=== PATIENT | female | born 1945 | race Caucasian/White ===

== ENCOUNTER → 2017-12-27 | Outpatient (CLI) | payer MEDICARE ==
[2017-03-20 11:52] VITALS: BMI 32.1
[~2017-12-27] MED LIST: ALB17R IH; ALBU8.5H IH; ASPI-1471 PO; AZIT-17 PO; CIP500 PO; CIPR-212 PO; CIPR-214 PO; CIPR-344 PO; CIPR500S3 PO; CIPRO PO; DEXL60CA6 PO; DIPH-1 PO; DULO30CA35 PO; DULO60CA56 PO; ENABLEX PO; ESCI20TA38 PO; ESTRADIOL; FAM20 PO; FAMO20TA28 PO; FENT-90 TD; FLU20 PO; FLUC100T35 PO; FLUO-202 PO; FLUT1DIS28 IH; HCTZ25 PO; HYDR-2966 PO; HYDR12.561 PO; HYDR1POW PO; HYDR2TAB74 PO; IBU600 PO; IBUP600T22 PO; LANS15CA38 PO; LOR1 PO; LOR5/325 PO; LORA-630 PO; LORA-639 PO; MAGN400C PO; MEPE50TA30 PO; METH4TAB66 PO; METR-160 PO; MOMR NS; NORE-5 PO; NYST15CR32 TP; ONDA4TAB9 PO; OXYC-869 PO; PANT40TA65 PO; PHEN200T32 PO; PHENA200 PO; PRE20 PO; PROGESTERONE; PROM-110 PO; RANI-318 PO; SUCR1TAB85 PO; TRAZ-133 PO; TRAZ-156 PO; TRAZ-163 PO; TRAZ50 PO; URI PO; ZOL5 PO; ZOLP-350 PO
--- NOTE | 2017-12-27 16:49 | RADIOLOGY IMAGING REPORT ---
FACILITY: [facility] PATIENT NAME: ELENA GRADY : [id number] MR: [id number] V: [id number] EXAM DATE: [id number] ORDERING PHYSICIAN: SAE MIRAMONTES TECHNOLOGIST: Usha Raya PROCEDURE:BILATERAL DIGITAL SCREENING MAMMOGRAM WITH CAD ASSISTED INTERPRETATION & 3D TOMOSYNTHESIS COMPARISON:Prior mammograms 03/25/11. INDICATIONS:SCREENING FINDINGS: Moderately dense fibroglandular tissue is seen throughout the breasts. The parenchymal pattern has remained stable allowing for difference in mammographic technique & patient positioning. There is no evidence of malignant appearing mass, malignant appearing calcifications or other secondary sign of malignancy in either breast. DIAGNOSTIC CATEGORY 1--NEGATIVE. RECOMMENDATIONS: ROUTINE MAMMOGRAM AND CLINICAL EVALUATION. IMPRESSION: BIRADS 1: Negative No significant abnormality is seen. Dictated by: Adriana Menard M.D. on 12/27/2017 at 13:55 Transcribed by: SOFIE on 12/27/2017 at 14:02 Approved by: Adriana Menard M.D. on 12/27/2017 at 16:49 [facility]
== END ==
LOC: MAMO 00:55
PROVIDERS: ATTEND Internal Medicine
DX: Z12.31 Encounter for screening mammogram for malignant neoplasm of breast (principal)
CPT/HCPCS: 77063; 77067

== ENCOUNTER → 2018-01-25 | Outpatient (CLI) | payer MEDICARE ==
[2017-03-20 11:52] VITALS: BMI 32.1
[~2018-01-25] MED LIST changes: +ASPI-757 PO; +DIPH-740 PO; +IBUP800T37 PO; +LORA0.5P MC; +SOLI10TA8 PO
[2018-01-25 16:18] LABS: PLATELET COUNT, AUTOMATED 229 K/uL (150-450)
== END ==
LOC: LAB 15:50
PROVIDERS: ATTEND Internal Medicine
DX: R53.83 Other fatigue (principal); E78.5 Hyperlipidemia, unspecified; I10 Essential (primary) hypertension; E66.9 Obesity, unspecified
CPT/HCPCS: 36415; 81001; 82040; 82247; 82310; 82374; 82435; 82565; 82947; 84075; 84132; 84155; 84295; 84443; 84450; 84460; 84520; 84550; 85025

== ENCOUNTER 2018-03-24 17:38 | Emergency (ER) | payer MEDICARE ==
[2017-03-20 11:52] VITALS: Wt 82.2 kg
[~2018-03-24 17:38] MED LIST changes: +MIRT-27 PO
[2018-03-24 18:40] VITALS: BP 144/92
[2018-03-24 19:10] LABS: PLATELET COUNT, AUTOMATED 296 K/uL (150-450)
--- NOTE | 2018-03-24 20:15 | ER Report ---
History and Physical Time Seen By MD: 20:15 Hx. of Stated Complaint: SUAD REPORTS HX OF ANXIETY AND DEPRESSION, NORMALLY TAKES LORAZEPAM BUT PROVIDER MOVED PRACTICE ABOUT 4 WEEKS AGO AND SHE HAS NOT HAD ANY LORAZEPAM SINCE. ALSO TAKES CYMBALTA HPI/ROS CHIEF COMPLAINT: Anxiety HISTORY OF PRESENT ILLNESS: Patient is a 72-year-old female here with complaints of anxiety and significant life stressors. She reports having history of depression and anxiety and had been treated with Cymbalta and lorazepam however currently does not have a prescription for lorazepam. Patient denies suicidal or homicidal ideation or plan. She is well-appearing at time of evaluation and in no acute distress. Denies headache, blurred vision, chest pain , shortness breath, abdominal pain, nausea, vomiting. REVIEW OF SYSTEMS: Constitutional: No fever, no chills. Eyes: No discharge. ENT: No sore throat. Cardiovascular: No chest pain, no palpitations. Respiratory: No cough, no shortness of breath. Gastrointestinal: No abdominal pain, no vomiting. Genitourinary: No hematuria. Musculoskeletal: No back pain. Skin: No rashes. Neurological: No headache. Psych: + anxious and depressed Allergies: Coded Allergies: Sulfa (Sulfonamide Antibiotics) (Verified Allergy, Severe, SHORTNESS OF BREATH, 03/20/16) nitrofurantoin (Verified Allergy, Severe, SHORTNESS OF BREATH, 03/20/16) codeine (Verified Allergy, Intermediate, ITCHING, 03/20/16) sertraline (Verified Allergy, Intermediate, RASH, 03/20/16) erythromycin base (Verified Allergy, Mild, NAUSEA/VOMITING, 03/20/16) succinylcholine (Verified Adverse Reaction, Severe, JOINT PAIN, 03/20/16) Home Meds Active Scripts Lorazepam (LORAZEPAM) 1 Mg Tab, 1 TAB PO Q8H for Anxiety, #10 TAB Prov:ADRIANNA DAMON DO 03/24/18 Mirtazapine (MIRTAZAPINE) 15 Mg Tab.rapdis, 15 MG PO QHS Y for insomnia, #30 TAB 1 Refill Prov:SAE MIRAMONTES MD 03/14/18 Hydrochlorothiazide (HYDROCHLOROTHIAZIDE) 12.5 Mg Tablet, 1 TAB PO QDAY, #90 TAB 4 Refills Prov:SAE MIRAMONTES MD 01/30/18 Pantoprazole Sodium (PANTOPRAZOLE SODIUM) 40 Mg Tablet.dr, 1 TAB PO QDAY, #30 TAB.SR 6 Refills Prov:SAE MIRAMONTES MD 08/23/17 Reported Medications Aspirin (ASPIRIN) 325 Mg Tablet, 325 MG PO Q4-6H Y for PAIN, TAB 01/25/18 Ibuprofen (IBUPROFEN) 800 Mg Tablet, 1 TAB PO QDAY Y for PAIN, TAB 01/25/18 Solifenacin Succinate (VESICARE) 10 Mg Tablet, 10 MG PO QDAY Y for incontinence 01/25/18 Diphenhydramine Hcl (BENADRYL) 25 Mg Capsule, 1 CAP PO Q6-8H, CAPSULE 01/24/18 Trazodone Hcl (TRAZODONE HCL) 100 Mg Tablet, 0.5 TAB PO QHS Y for anxiety, TAB 02/28/17 Duloxetine Hcl (CYMBALTA) 60 Mg Capsule.dr, 1 CAP PO QDAY, #5 CAP 03/20/16 Past Medical/Surgical History Depression, anxiety Reviewed Nurses Notes: Yes Hx Smoking: No Smoking Status: Never Smoker Hx Substance Use Disorder: No Hx Alcohol Use: No Constitutional Vital Sign - Last 24 Hours 03/24/18 18:40 Temp 98.0 Pulse 107 Resp 18 B/P (MAP) 144/92 Pulse Ox 92 Physical Exam General Appearance: [The patient is alert, has no immediate need for airway protection and no signs of toxicity.] [ ] [Eyes:] [Pupils equal and round no pallor or injection.] [ENT, Mouth:] [Mucous membranes are moist.] Respiratory: [There are no retractions, lungs are clear to auscultation.] Cardiovascular: [Regular rate and rhythm.] [ ] Gastrointestinal: [Abdomen is soft and non tender, no masses, bowel sounds normal.] [Neurological:] [ ] [Skin:] [Warm and dry, no rashes.] [Musculoskeletal:] [Neck is supple non tender.] [Extremities are nontender, nonswollen and have full range of motion.] [ ] [DIFFERENTIAL DIAGNOSIS: After history and physical exam differential diagnosis was considered for] [ ] Medical Decision Making Data Points Result Diagram: 03/24/18190203/24/181902 Laboratory Hematology Test 03/24/18 00:00 03/24/18 19:03 Thyroid Stimulating Hormone (TSH) 2.65 uIU/ml (0.46-4.68) Red Blood Count 5.74 M/uL (4.17-5.56) Mean Corpuscular Volume 85.3 fL (80.0-96.0) Mean Corpuscular Hemoglobin 28.9 pg (26.0-33.0) Mean Corpuscular Hemoglobin Concent 33.9 g/dL (32.0-36.0) Red Cell Distribution Width 13.5 % (11.5-14.5) Mean Platelet Volume 7.5 fL (7.2-11.1) Neutrophils (%) (Auto) 72.4 % (39.4-72.5) Lymphocytes (%) (Auto) 15.4 % (17.6-49.6) Monocytes (%) (Auto) 7.3 % (4.1-12.4) Eosinophils (%) (Auto) 3.7 % (0.4-6.7) Basophils (%) (Auto) 1.2 % (0.3-1.4) Nucleated RBC Relative Count (auto) 0.0 /100WBC Neutrophils # (Auto) 9.5 K/uL (2.0-7.4) Lymphocytes # (Auto) 2.0 K/uL (1.3-3.6) Monocytes # (Auto) 1.0 K/uL (0.3-1.0) Eosinophils # (Auto) 0.5 K/uL (0.0-0.5) Basophils # (Auto) 0.2 K/uL (0.0-0.1) Nucleated RBC Absolute Count (auto) 0.00 K/uL Sodium Level 138 mmol/L (137-145) Potassium Level 3.6 mmol/L (3.5-5.0) Chloride Level 98 mmol/L (98-107) Carbon Dioxide Level 29 mmol/L (22-31) Blood Urea Nitrogen 18 mg/dl (7-18) Creatinine 1.00 mg/dl (0.52-1.04) Glomerular Filtration Rate Calc 54.2 Random Glucose 129 mg/dl (75-110) Calcium Level 9.0 mg/dl (8.4-10.2) Magnesium Level 2.0 mg/dl (1.7-2.2) Total Bilirubin 0.5 mg/dl (0.2-1.3) Aspartate Amino Transf (AST/SGOT) 23 U/L (0-35) Alanine Aminotransferase (ALT/SGPT) 22 U/L (0-56) Alkaline Phosphatase 110 U/L (0-126) Total Protein 7.6 g/dl (6.3-8.2) Albumin 4.2 g/dl (3.5-5.0) Salicylates Level < 10 mg/L Salicylate Last Dose Date unknwon Acetaminophen Level < 10 ug/ml Serum Alcohol < 10 mg/dl Chemistry Test 03/24/18 00:00 03/24/18 19:03 Thyroid Stimulating Hormone (TSH) 2.65 uIU/ml (0.46-4.68) White Blood Count 13.1 k/uL (4.5-11.0) Red Blood Count 5.74 M/uL (4.17-5.56) Hemoglobin 16.6 g/dL (12.0-16.0) Hematocrit 48.9 % (34.0-47.0) Mean Corpuscular Volume 85.3 fL (80.0-96.0) Mean Corpuscular Hemoglobin 28.9 pg (26.0-33.0) Mean Corpuscular Hemoglobin Concent 33.9 g/dL (32.0-36.0) Red Cell Distribution Width 13.5 % (11.5-14.5) Platelet Count 296 K/uL (150-450) Mean Platelet Volume 7.5 fL (7.2-11.1) Neutrophils (%) (Auto) 72.4 % (39.4-72.5) Lymphocytes (%) (Auto) 15.4 % (17.6-49.6) Monocytes (%) (Auto) 7.3 % (4.1-12.4) Eosinophils (%) (Auto) 3.7 % (0.4-6.7) Basophils (%) (Auto) 1.2 % (0.3-1.4) Nucleated RBC Relative Count (auto) 0.0 /100WBC Neutrophils # (Auto) 9.5 K/uL (2.0-7.4) Lymphocytes # (Auto) 2.0 K/uL (1.3-3.6) Monocytes # (Auto) 1.0 K/uL (0.3-1.0) Eosinophils # (Auto) 0.5 K/uL (0.0-0.5) Basophils # (Auto) 0.2 K/uL (0.0-0.1) Nucleated RBC Absolute Count (auto) 0.00 K/uL Glomerular Filtration Rate Calc 54.2 Calcium Level 9.0 mg/dl (8.4-10.2) Magnesium Level 2.0 mg/dl (1.7-2.2) Total Bilirubin 0.5 mg/dl (0.2-1.3) Aspartate Amino Transf (AST/SGOT) 23 U/L (0-35) Alanine Aminotransferase (ALT/SGPT) 22 U/L (0-56) Alkaline Phosphatase 110 U/L (0-126) Total Protein 7.6 g/dl (6.3-8.2) Albumin 4.2 g/dl (3.5-5.0) Salicylates Level < 10 mg/L Salicylate Last Dose Date unknwon Acetaminophen Level < 10 ug/ml Serum Alcohol < 10 mg/dl Toxicology Test 03/24/18 19:03 Salicylates Level < 10 mg/L Salicylate Last Dose Date unknwon Acetaminophen Level < 10 ug/ml Serum Alcohol < 10 mg/dl ED Course/Re-evaluation ED Course Patient is a 72-year-old female here with complaints of depression and anxiety exacerbation. Patient has been treated in the outpatient setting for these conditions with Cymbalta and lorazepam however she is having difficulty getting access to lorazepam. Patient denies suicidal or homicidal ideations. Patient was evaluated by behavioral health diamond powder technician and was offered outpatient opportunities for treatment since she was not interested in coming up to the behavioral health floor. I provided the patient with a prescription for lorazepam temporarily until she is able to regain access to a psychiatrist or therapist. Patient was stable at time of discharge and in no acute distress. Decision to Disposition Date: Mar 24, 2018 Decision to Disposition Time: 20:27 Depart Departure Latest Vital Signs Vital Signs Date Time Temp Pulse Resp B/P (MAP) Pulse Ox O2 Delivery O2 Flow Rate FiO2 03/24/18 18:40 98.0 107 18 144/92 92 Impression: Primary Impression: Anxiety Additional Impression: Depression Condition: Improved Disposition: HOME OR SELF-CARE Referrals: SAE MIRAMONTES MD (PCP) New Scripts Lorazepam (LORAZEPAM) 1 Mg Tab 1 TAB PO Q8H for Anxiety, #10 TAB Prov: ADRIANNA DAMON DO 03/24/18 Patient Instructions: Anxiety (ED), Depression (ED), Lorazepam (By mouth) Additional Instructions: You may take 1 tablet of lorazepam as needed for anxiety. Please follow up with psychiatry in the outpatient setting. Please return promptly if you have worsening symptoms of depression, anxiety, suicidal thoughts or actions. Problem Qualifiers ADRIANNA DAMON DO Mar 24, 2018 20:15
[2018-03-24] MEDS ORDERED: LOR1 PO (20:17)
== END 2018-03-24 20:27 | disposition home or self-care (01) ==
LOC: ER 18:42
DX: F41.9 Anxiety disorder, unspecified (principal); F32.9 Major depressive disorder, single episode, unspecified
CPT/HCPCS: 36415; 83735; 84443; 85025; 99283; G0480; 80320; 80329; 82040; 82247; 82310; 82374; 82435; 82565; 82947; 84075; 84132; 84155; 84295; 84450; 84460; 84520

== ENCOUNTER → 2018-06-16 | Outpatient (CLI) | payer MEDICARE ==
[2017-03-20 11:52] VITALS: BMI 32.1
[~2018-06-16] MED LIST changes: -MEPE50TA30 PO; +MEPE50TA41 PO; -TRAZ-156 PO; -TRAZ-163 PO; +TRAZ100T31 PO; +TRAZ50TA34 PO
--- NOTE | 2018-06-16 14:34 | RADIOLOGY IMAGING REPORT ---
FACILITY: [facility] PATIENT NAME: Rosalina Torres : 1945 MR: [id number] V: [id number] EXAM DATE: ORDERING PHYSICIAN: AZALEA HWANG TECHNOLOGIST: Location: Patient: Rosalina Torres : 1945 Visit/Account:[id number] Date of Sevice: 06/16/2018 Exam type: CHEST PA AND LAT History: Acute bronchitis with cough x1 month, shortness of breath, occasional fevers Comparison: October 25, 2013. Findings: The lungs are free of acute effusions, infiltrates or edema. There is mild hyperexpansion of the ina g ponce. There is no evidence of a pneumothorax. The trachea is in midline. The cardiac silhouett e is normal in size. Other postsurgical changes of the thoracolumbar spine from posterior fusion IMPRESSION: 1. Mild hyperexpansion lung ponce although no evidence of acute pulmonary consolidation Report Dictated By: Adriana Menard MD at 06/16/2018 2:29 PM Report E-Signed By: Adriana Menard MD at 06/16/2018 2:31 PM WSN:[email or web address]
== END ==
LOC: RAD 11:22
PROVIDERS: ATTEND Physician Assistant Medical
DX: J20.9 Acute bronchitis, unspecified (principal)
CPT/HCPCS: 71046

== ENCOUNTER → 2018-07-01 | Outpatient (REF) | payer MEDICARE ==
[2017-03-20 11:52] VITALS: BMI 32.1
== END ==
LOC: ZZSTITCHES 17:17
PROVIDERS: ATTEND Physician Assistant
DX: R30.0 Dysuria (principal)
CPT/HCPCS: 87088

== ENCOUNTER 2018-07-10 00:50 | Day surgery (SDC) | payer MEDICARE ==
[2017-03-20 11:52] VITALS: Ht 160 cm; Wt 81.2 kg
[~2018-07-10] VITALS: Ht 160 cm; Wt 81.2 kg
[2018-07-10] MEDS: FAMOTIDINE 20 MG TAB PO ONE ×2 (10:04→11:10)
[2018-07-10 10:36] LABS: PLATELET COUNT, AUTOMATED 280 K/uL (150-450)
[2018-07-10 11:00] VITALS: BP 123/74
[2018-07-10] MEDS ORDERED: GENTAMICIN(*) 80 MG/2 ML VIAL 160 MG in NS(*) 0.9% 100 ML BAG 100 ML IVPB ONE (11:10)
[2018-07-10] MEDS ORDERED: LIDOCAINE/SOD BICARB 8.4% SYR ID ONE (11:10)
[2018-07-10] MEDS ORDERED: cefTRIAXone(*) 1 GM VIAL 1 GM in NS(*) 0.9% 100 ML ADDVANT BAG 100 ML IVPB ONE (11:10)
[2018-07-10] MEDS ORDERED: NORMOSOL R SOLN(*) 1000 ML BAG 1,000 ML IV PRN (11:10)
[2018-07-10] MEDS ORDERED: MIDAZOLAM 2 MG/2 ML VIAL IVP PRN (11:10)
--- NOTE | 2018-07-10 11:13 | EKG ---
FACILITY: [facility] PATIENT NAME: ELENA GRADY : [id number] MR: [id number] V: [id number] EXAM DATE: ORDERING PHYSICIAN: NATHANIEL JOY TECHNOLOGIST: FLOYD Test Reason : PRE OP Blood Pressure : / mmHG Vent. Rate : 071 BPM Atrial Rate : 071 BPM P-R Int : 152 ms QRS Dur : 074 ms QT Int : 400 ms P-R-T Axes : 069 055 073 degrees QTc Int : 434 ms Normal sinus rhythm Normal ECG When compared with ECG of 31-JUL-2015 06:21, No significant change was found Confirmed by LISBETH DURHAM ([id number]) on 07/10/2018 7:41:28 PM Referred By: RUFINO Confirmed By:LISBETH DURHAM
[2018-07-10] MEDS ORDERED: LIDOCAINE MPF 1% 5 ML VIAL ONE (11:35)
[2018-07-10] MEDS ORDERED: PROPOFOL EMUL(*) 10MG/ML 20 ML 20 ML ONE (11:35)
[2018-07-10] MEDS ORDERED: ONDANSETRON 4 MG/2 ML VIAL ONE (11:35)
[2018-07-10] MEDS ORDERED: DEXAMETHASONE SOD 4 MG/ML VIAL ONE (11:53)
[2018-07-10] MEDS ORDERED: fentaNYL CITR 100 MCG/2 ML AMP ONE ×2 (11:55→15:15)
[2018-07-10] MEDS ORDERED: KETOROLAC 30 MG/ML VIAL ONE (14:34)
[2018-07-10] MEDS ORDERED: HYDROCORTISONE 1% CR 28.35 GM TP ONE (15:09)
[2018-07-10] MEDS ORDERED: LOR5/325 PO (15:32)
[2018-07-10] MEDS ORDERED: PHEN200T32 PO (15:34)
[2018-07-10] MEDS ORDERED: FAMO20TA28 PO (15:35)
[2018-07-10] MEDS ORDERED: CIPR-344 PO (15:36)
[2018-07-10] MEDS ORDERED: APAP/HYDROCODONE 325/5 TAB ONE (15:57)
[2018-07-10 16:00] VITALS: BP 114/56
[2018-07-10 16:15] VITALS: BP 129/80
[2018-07-10 16:31] VITALS: BP 127/89
[2018-07-10 16:32] VITALS: BP 116/88
--- NOTE | 2018-07-11 02:27 | FLOCK CYSTOURETHROSCOPY ---
EVENT DATE: July 10, 2018 SURGEON: Jb Cosme MD ANESTHESIOLOGIST: Joshua Ulloa MD ANESTHESIA: General. PREOPERATIVE DIAGNOSES 1. Recurrent urinary tract infections, etiology ? 2. Possible irritable bladder syndrome. 3. Chronic urgency and frequency of urination. 4. Chronic tenesmus. POSTOPERATIVE DIAGNOSES 1. Recurrent urinary tract infections, etiology ? 2. Possible irritable bladder syndrome. 3. Chronic urgency and frequency of urination. 4. Chronic tenesmus. 5. Multiple inflammatory lesions of bladder x4. PROCEDURES PERFORMED 1. Cystourethroscopy. 2. Biopsy of inflammatory lesions of the base of bladder, just proximal to the trigone, localized more to the mid and left lateral aspect of the base of the bladder. 3. Vaporization and fulguration of the multiple inflammatory lesions of the bladder. DESCRIPTION OF PROCEDURE Under general anesthetic, the patient was prepped and draped in the extended lithotomy position. The 23-panendoscope was admitted through the urethra and into the bladder. The inflammatory lesions were biopsied x3. All the inflammatory lesions of the bladder were vaporized in their entirety. The bladder was filled under gravity flow as measured to a total of approximately 500 mL. On drainage of the bladder, there was no bloody drainage. On reinspection of the bladder, there were no glomerulations except for a few localized to the dome of the bladder. The bladder was refilled under gravity flow and distended. Drainage of the bladder revealed approximately 630 mL. On drainage of the bladder, there was no bloody drainage. On reinspection of the bladder, there were no glomerulations except for those localized on the dome of the bladder. The previous biopsy sites appeared to be intact, and bleeding appeared to be satisfactorily controlled. There were no urethral polyps. Urethra was dilated to 34 Bel[place]ian. Hydrocortisone cream was placed per urethra. A Shelley was left indwelling to be removed in the recovery room. The patient tolerated the procedure satisfactorily and returned to the recovery room in satisfactory condition. This is a 70-year-old white female complaining of history of recurrent urinary tract infections and possible irritable bladder syndrome. Patient complains of chronic urgency and frequency of urination and tenesmus relieved with VESIcare somewhat. Recently, the patient had more severe urgency and frequency of urination and tenesmus, especially in the last three to four weeks, with no relief from Keflex, Macrodantin, and VESIcare therapy. Patient has nocturia x2-3. Flow is initially good, and then she has to strain to finish urination. She has frequency of urination approximately every hour. She has leakage of urine with both stress and urgency, urinary incontinence. Patient has chronic urgency and frequency of urination. The patient will be ready for discharge home when alert and functional. She is to force fluids 2 liters per day. Activities are as tolerated. She is to continue her usual medications. A copy of instructions was given to the patient. We plan followup for 25 July 2018. She is to call for an appointment. She was given a dose of Toradol in the cysto room. She will be discharged home on Cipro, Royal, Pyridium, and Pepcid therapy, in addition to her usual medications. NANCYD
== END 2018-07-10 16:00 | disposition home or self-care (01) ==
LOC: OR 00:50
DX: N39.0 Urinary tract infection, site not specified (principal); R35.0 Frequency of micturition; R39.15 Urgency of urination; R19.8 Other specified symptoms and signs involving the digestive system and abdomen; N32.9 Bladder disorder, unspecified; Z88.2 Allergy status to sulfonamides; Z90.49 Acquired absence of other specified parts of digestive tract; I10 Essential (primary) hypertension; J45.909 Unspecified asthma, uncomplicated; F32.9 Major depressive disorder, single episode, unspecified
CPT/HCPCS: 36415; 52214; 81001; 85025; 87088; 88305; 93005; A4338; A9270; C1758; J0696; J1100; J1580; J1885; J2001; J2250; J2405; J2704; J3010; J7050; 82310; 82374; 82435; 82565; 82947; 84132; 84295; 84520

== ENCOUNTER 2019-01-27 18:11 | Emergency (ER) | payer MEDICARE ==
[2017-03-20 11:52] VITALS: Wt 79.4 kg
[~2019-01-27 18:11] MED LIST changes: -METR-160 PO; +METR500T15 PO; -MIRT-27 PO; +MIRT15TA11 PO
[2019-01-27] MEDS ORDERED: NS(*) 0.9% 1000 ML BAG 1,000 ML IV ONE (18:40)
--- NOTE | 2019-01-27 18:48 | ER Report ---
History and Physical Time Seen By MD: 18:48 HPI/ROS CHIEF COMPLAINT: Dysuria, urinary urgency, fatigue HISTORY OF PRESENT ILLNESS: 73-year-old female patient presents to emergency room with complaint of dysuria, urinary urgency, fatigue. Patient states that she has had dysuria for the past 3 weeks. She states that it started prior to going to [place]. She states that she was started on Cipro. She states that did cause some reaction. She states that she stopped in [place] at a family clinic. She states she was changed to a different antibiotic, however she is not sure what the name of the antibiotic was. She thinks that it started with a C. Patient states that she finished that antibiotic. She states she has had persistent urinary urgency and discomfort. She states that she is most concerned that she is just fatigued and has persisted to be fatigued since she's returned from [place]. She denies having any fevers, or states she has had chills. She denies any nausea, vomiting or diarrhea. Patient denies having any abdominal pain. REVIEW OF SYSTEMS: Respiratory: No cough, no dyspnea. Cardiovascular: No chest pain, no palpitations. Gastrointestinal: No vomiting, no abdominal pain. Musculoskeletal: No back pain. Allergies: Coded Allergies: Sulfa (Sulfonamide Antibiotics) (Verified Allergy, Severe, SHORTNESS OF BREATH, 01/27/19) nitrofurantoin (Verified Allergy, Severe, SHORTNESS OF BREATH, 01/27/19) codeine (Verified Allergy, Intermediate, ITCHING, 01/27/19) sertraline (Verified Allergy, Intermediate, RASH, 01/27/19) erythromycin base (Verified Allergy, Mild, NAUSEA/VOMITING, 01/27/19) succinylcholine (Verified Adverse Reaction, Severe, JOINT PAIN, 01/27/19) Home Meds Active Scripts Hydrochlorothiazide (HYDROCHLOROTHIAZIDE) 12.5 Mg Tablet, 1 TAB PO QDAY, #90 TAB 4 Refills Prov:SAE MIRAMONTES MD 01/30/18 Pantoprazole Sodium (PANTOPRAZOLE SODIUM) 40 Mg Tablet., 1 TAB PO QDAY, #30 TAB.SR 6 Refills Prov:SAE MIRAMONTES MD 08/23/17 Reported Medications Duloxetine Hcl (CYMBALTA) 60 Mg Capsule., 90 MG PO QDAY, #5 CAP 10/19/18 Solifenacin Succinate (VESICARE) 10 Mg Tablet, 10 MG PO QDAY PRN for incontinence 01/25/18 Trazodone Hcl (TRAZODONE HCL) 100 Mg Tablet, 0.5 TAB PO QHS PRN for anxiety, TAB 02/28/17 Discontinued Reported Medications Ciprofloxacin Hcl 500 Mg Tab (CIPRO 500 MG TAB) 500 Mg Tablet, 500 MG PO BID, #20 TAB 07/10/18 Phenazopyridine Hcl (PHENAZOPYRIDINE HCL) 200 Mg Tablet, 200 MG PO TID PRN for BURNING, #20 TAB 07/10/18 Hydrocodone Bit/Acetaminophen (HYDROCODON-ACETAMINOPHEN 5-325) 1 Each Tablet, 1 EACH PO Q4-6H PRN for PAIN, #30 TAB 07/10/18 Past Medical/Surgical History Patient has a past medical history of hypertension, asthma, pneumonia, reflux, cholecystitis, hiatal hernia, frequent UTI, fracture of the right foot, elbow, right Achilles tendinitis, arthritis, back pain, depression. Patient has a surgical history of appendectomy, cholecystectomy, colonoscopy, cystoscopy, right oophorectomy, elbow surgery, right knee surgery, back fusion, tonsillectomy, breast biopsy, cystoscopy. Reviewed Nurses Notes: Yes Hx Smoking: No Smoking Status: Never Smoker Hx Substance Use Disorder: No Hx Alcohol Use: No Constitutional Vital Sign - Last 24 Hours 01/27/19 01/27/19 01/27/19 01/27/19 18:46 18:50 19:00 19:11 Temp 97.6 Pulse 80 72 Resp 18 B/P (MAP) 141/71 (94) 141/71 131/64 (86) Pulse Ox 94 91 O2 Delivery Room Air 01/27/19 01/27/19 01/27/19 19:30 19:32 19:41 Pulse 66 B/P (MAP) 140/95 (110) 127/66 (86) Pulse Ox 89 Physical Exam General Appearance: The patient is alert, has no immediate need for airway protection and no current signs of toxicity. Respiratory: Chest is non tender, lungs are clear to auscultation. Cardiac: regular rate and rhythm Gastrointestinal: Abdomen is soft and non tender, no masses, bowel sounds normal. Musculoskeletal: Neck: Neck is supple and non tender. Extremities have full range of motion and are non tender. Skin: No rashes or lesions. DIFFERENTIAL DIAGNOSIS: After history and physical exam differential diagnosis was considered for urinary tract infection, cystitis, viral syndrome, dehydration. Medical Decision Making Data Points Result Diagram: 01/27/19190201/27/191902 Laboratory Hematology Test 01/27/19 19:03 01/27/19 19:42 Red Blood Count 5.09 M/uL (4.17-5.56) Mean Corpuscular Volume 85.2 fL (80.0-96.0) Mean Corpuscular Hemoglobin 29.1 pg (26.0-33.0) Mean Corpuscular Hemoglobin Concent 34.2 g/dL (32.0-36.0) Red Cell Distribution Width 13.9 % (11.5-14.5) Mean Platelet Volume 7.7 fL (7.2-11.1) Neutrophils (%) (Auto) 64.0 % (39.4-72.5) Lymphocytes (%) (Auto) 20.4 % (17.6-49.6) Monocytes (%) (Auto) 8.0 % (4.1-12.4) Eosinophils (%) (Auto) 6.5 % (0.4-6.7) Basophils (%) (Auto) 1.1 % (0.3-1.4) Nucleated RBC Relative Count (auto) 0.1 /100WBC Neutrophils # (Auto) 5.9 K/uL (2.0-7.4) Lymphocytes # (Auto) 1.9 K/uL (1.3-3.6) Monocytes # (Auto) 0.7 K/uL (0.3-1.0) Eosinophils # (Auto) 0.6 K/uL (0.0-0.5) Basophils # (Auto) 0.1 K/uL (0.0-0.1) Nucleated RBC Absolute Count (auto) 0.01 K/uL Sodium Level 136 mmol/L (137-145) Potassium Level 3.1 mmol/L (3.5-5.0) Chloride Level 100 mmol/L (98-107) Carbon Dioxide Level 26 mmol/L (22-31) Blood Urea Nitrogen 24 mg/dl (7-18) Creatinine 1.00 mg/dl (0.52-1.04) Glomerular Filtration Rate Calc 54.1 Random Glucose 90 mg/dl (75-110) Calcium Level 9.1 mg/dl (8.4-10.2) Total Bilirubin 0.2 mg/dl (0.2-1.3) Aspartate Amino Transf (AST/SGOT) 30 U/L (0-35) Alanine Aminotransferase (ALT/SGPT) 14 U/L (0-56) Alkaline Phosphatase 109 U/L (0-126) Total Protein 6.8 g/dl (6.3-8.2) Albumin 3.9 g/dl (3.5-5.0) Urine Color Yellow Urine Clarity Clear Urine pH 5.0 pH (4.8-9.5) Urine Specific [place] 1.011 Urine Protein Negative mg/dL (NEGATIVE) Urine Glucose (UA) Negative mg/dL (NEGATIVE) Urine Ketones Negative mg/dL (NEGATIVE) Urine Blood Negative (NEGATIVE) Urine Nitrite Negative (NEGATIVE) Urine Bilirubin Negative (NEGATIVE) Urine Urobilinogen Negative mg/dL (0.2-1.9) Urine Leukocyte Esterase Negative (NEGATIVE) Urine RBC <1 /HPF (0-2/HPF) Urine WBC None /HPF (0-5/HPF) Urine Squamous Epithelial Cells Few /LPF (NONE-FEW) Urine Bacteria Negative /HPF (NONE-FEW) Urine Mucus None /HPF (NONE-FEW) Chemistry Test 01/27/19 19:03 01/27/19 19:42 White Blood Count 9.2 k/uL (4.5-11.0) Red Blood Count 5.09 M/uL (4.17-5.56) Hemoglobin 14.8 g/dL (12.0-16.0) Hematocrit 43.3 % (34.0-47.0) Mean Corpuscular Volume 85.2 fL (80.0-96.0) Mean Corpuscular Hemoglobin 29.1 pg (26.0-33.0) Mean Corpuscular Hemoglobin Concent 34.2 g/dL (32.0-36.0) Red Cell Distribution Width 13.9 % (11.5-14.5) Platelet Count 276 K/uL (150-450) Mean Platelet Volume 7.7 fL (7.2-11.1) Neutrophils (%) (Auto) 64.0 % (39.4-72.5) Lymphocytes (%) (Auto) 20.4 % (17.6-49.6) Monocytes (%) (Auto) 8.0 % (4.1-12.4) Eosinophils (%) (Auto) 6.5 % (0.4-6.7) Basophils (%) (Auto) 1.1 % (0.3-1.4) Nucleated RBC Relative Count (auto) 0.1 /100WBC Neutrophils # (Auto) 5.9 K/uL (2.0-7.4) Lymphocytes # (Auto) 1.9 K/uL (1.3-3.6) Monocytes # (Auto) 0.7 K/uL (0.3-1.0) Eosinophils # (Auto) 0.6 K/uL (0.0-0.5) Basophils # (Auto) 0.1 K/uL (0.0-0.1) Nucleated RBC Absolute Count (auto) 0.01 K/uL Glomerular Filtration Rate Calc 54.1 Calcium Level 9.1 mg/dl (8.4-10.2) Total Bilirubin 0.2 mg/dl (0.2-1.3) Aspartate Amino Transf (AST/SGOT) 30 U/L (0-35) Alanine Aminotransferase (ALT/SGPT) 14 U/L (0-56) Alkaline Phosphatase 109 U/L (0-126) Total Protein 6.8 g/dl (6.3-8.2) Albumin 3.9 g/dl (3.5-5.0) Urine Color Yellow Urine Clarity Clear Urine pH 5.0 pH (4.8-9.5) Urine Specific [place] 1.011 Urine Protein Negative mg/dL (NEGATIVE) Urine Glucose (UA) Negative mg/dL (NEGATIVE) Urine Ketones Negative mg/dL (NEGATIVE) Urine Blood Negative (NEGATIVE) Urine Nitrite Negative (NEGATIVE) Urine Bilirubin Negative (NEGATIVE) Urine Urobilinogen Negative mg/dL (0.2-1.9) Urine Leukocyte Esterase Negative (NEGATIVE) Urine RBC <1 /HPF (0-2/HPF) Urine WBC None /HPF (0-5/HPF) Urine Squamous Epithelial Cells Few /LPF (NONE-FEW) Urine Bacteria Negative /HPF (NONE-FEW) Urine Mucus None /HPF (NONE-FEW) Urinalysis Test 01/27/19 19:42 Urine Color Yellow Urine Clarity Clear Urine pH 5.0 pH (4.8-9.5) Urine Specific [place] 1.011 Urine Protein Negative mg/dL (NEGATIVE) Urine Glucose (UA) Negative mg/dL (NEGATIVE) Urine Ketones Negative mg/dL (NEGATIVE) Urine Blood Negative (NEGATIVE) Urine Nitrite Negative (NEGATIVE) Urine Bilirubin Negative (NEGATIVE) Urine Urobilinogen Negative mg/dL (0.2-1.9) Urine Leukocyte Esterase Negative (NEGATIVE) Urine RBC <1 /HPF (0-2/HPF) Urine WBC None /HPF (0-5/HPF) Urine Squamous Epithelial Cells Few /LPF (NONE-FEW) Urine Bacteria Negative /HPF (NONE-FEW) Urine Mucus None /HPF (NONE-FEW) ED Course/Re-evaluation ED Course Patient is admitted to an exam room, history and physical were obtained. Differential diagnoses were considered. On examination lungs are clear, heart is regular, abdomen soft nontender. Patient had a straight catheter was done for a clean urine, the results of that were negative. I viewed and started patient received a liter normal saline. A CBC and CMP were obtained that time. Lab work was unremarkable. I discussed the findings with the patient. With the negative urinary tract infection we'll go ahead and discharge patient home. She is follow-up with Dr. Cosme next week. As far as her fatigue goes I believe is likely secondary to a viral syndrome. We will go ahead and have her increase her fluid intake, get plenty of rest and follow-up with her primary care provider next week if symptoms don't improve over the next couple days. Patient verbalized understanding and agreement with plan. Decision to Disposition Date: January 27, 2019 Decision to Disposition Time: 20:20 Depart Departure Latest Vital Signs Vital Signs Date Time Temp Pulse Resp B/P (MAP) Pulse Ox O2 Delivery O2 Flow Rate FiO2 01/27/19 19:41 66 89 01/27/19 19:32 127/66 (86) 01/27/19 18:50 97.6 18 Room Air Impression: Primary Impression: Fatigue Additional Impressions: Urinary urgency Dehydration Condition: Condition Unchanged Disposition: HOME OR SELF-CARE Referrals: DEVIN BAUTISTA DO (PCP) Patient Instructions: Fatigue (ED) Additional Instructions: Increase fluid intake. Get plenty of rest. Follow up with your primary care provider in the next week if there is no improvement. Continue with your current medications. Follow up with Dr. Flock as scheduled. Return to the ER if condition worsens. Problem Qualifiers Primary Impression: Fatigue Fatigue type: unspecified Qualified Codes: R53.83 - Other fatigue MINI VERDUGO January 27, 2019 18:48
[2019-01-27 19:16] LABS: PLATELET COUNT, AUTOMATED 276 K/uL (150-450)
[2019-01-27 19:32] VITALS: BP 127/66
[2019-01-31] MEDS ORDERED: ZOLP-1 PO (10:38)
[2019-01-31] MEDS ORDERED: ALPR-429 PO (10:39)
== END 2019-01-27 20:37 | disposition home or self-care (01) ==
LOC: ER 18:45
DX: R53.83 Other fatigue (principal); R39.15 Urgency of urination; E86.0 Dehydration
CPT/HCPCS: 81001; 85025; 96360; 99283; A4353; J7030; 82040; 82247; 82310; 82374; 82435; 82565; 82947; 84075; 84132; 84155; 84295; 84450; 84460; 84520

== ENCOUNTER 2019-02-01 00:58 | Day surgery (SDC) | payer MEDICARE ==
[2017-03-20 11:52] VITALS: Ht 161.3 cm; Wt 80.7 kg
[~2019-02-01] VITALS: Ht 161.3 cm; Wt 80.7 kg
[~2019-02-01 00:58] MED LIST changes: +ALPR-429 PO; -TRAZ50TA34 PO; +TRAZ50TA52 PO; +ZOLP-1 PO
[2019-02-01 11:45] VITALS: BP 138/74
[2019-02-01] MEDS ORDERED: LIDOCAINE/SOD BICARB 8.4% SYR ID ONE (12:00)
[2019-02-01] MEDS ORDERED: NORMOSOL R SOLN(*) 1000 ML BAG 1,000 ML IV PRN (12:00)
[2019-02-01] MEDS ORDERED: MIDAZOLAM 2 MG/2 ML VIAL IVP PRN (12:00)
[2019-02-01] MEDS ORDERED: LIDOCAINE 2% IV 100 MG/5ML SYR ONE (12:45)
[2019-02-01] MEDS ORDERED: fentaNYL CITR 100 MCG/2 ML AMP ONE (12:45)
[2019-02-01] MEDS ORDERED: PROPOFOL EMUL(*) 10MG/ML 20 ML 20 ML ONE (12:46)
[2019-02-01] MEDS ORDERED: cefTRIAXone(*) 2 GM VIAL 2 GM in NS(*) 0.9% 100 ML MINI-BAG 100 ML IVPB ONE (13:00)
[2019-02-01] MEDS ORDERED: DEXAMETHASONE SOD 4 MG/ML VIAL ONE (13:33)
[2019-02-01] MEDS ORDERED: LIDOCAINE/SOD BICARB 8.4% SYR ONE (13:34)
[2019-02-01] MEDS ORDERED: ONDANSETRON 4 MG/2 ML VIAL ONE (13:34)
[2019-02-01] MEDS ORDERED: HYDROCORTISONE 1% CR 28.35 GM TP ONE (14:25)
[2019-02-01] MEDS ORDERED: KETOROLAC 30 MG/ML VIAL IVP ONE (15:35)
[2019-02-01] MEDS ORDERED: GENTAMICIN(*) 80 MG/2 ML VIAL 160 MG in NS(*) 0.9% 100 ML BAG 100 ML IVPB ONE (15:35)
[2019-02-01 15:55] VITALS: BP 124/53
[2019-02-01] MEDS ORDERED: PHEN200T32 PO (15:55)
[2019-02-01] MEDS ORDERED: FAMO20TA28 PO ×2 (15:56→15:57)
[2019-02-01] MEDS ORDERED: HYDR-653 PO (16:00)
[2019-02-01] MEDS ORDERED: TRI100 PO (16:04)
[2019-02-01 16:07] VITALS: BP 112/56
[2019-02-01 16:09] VITALS: BP 100/65
--- NOTE | 2019-02-01 16:26 | OPERATIVE REPORT 1 ---
EVENT DATE: February 01, 2019 SURGEON: Jb Cosme MD ANESTHESIOLOGIST: Henry Ocampo MD ANESTHESIA: General anesthetic. PREOPERATIVE DIAGNOSES 1. Chronic urgency and frequency of urination, etiology ? 2. Tenesmus, bladder pain, etiology ? 3. Probable irritable bladder syndrome. POSTOPERATIVE DIAGNOSIS 1. Chronic urgency and frequency of urination, etiology ? 2. Tenesmus, bladder pain, etiology ? 3. Probable irritable bladder syndrome. PROCEDURES PERFORMED 1. Cystourethroscopy. 2. Hydrodistention of the bladder. 3. Collection of urine for urinalysis, culture, and sensitivity. DESCRIPTION OF PROCEDURE Under general anesthetic, the patient was prepped and draped in the extended lithotomy position. The 21 panendoscope admitted through the urethra into the bladder. There was mild inflammatory urethritis and pseudomembranous trigonitis. Bladder showed 3 to 4+ trabeculation. Trigone and ureteral orifices were normal. The bladder showed evidence of previous biopsy sites. They were well healed. There were no other demonstrable lesions. The patient was on Pyridium, and there was tissue that appeared to be stained in a spotty fashion throughout the bladder. Pictures were obtained. The dome of the bladder showed most of this finding. The bladder was filled under gravity flow. This measured a total of 800 mL. On drainage of the bladder, there was no bloody drainage. On reinspection of the bladder, there were no glomerulations. The bladder was refilled under gravity flow and was hydrodistended. This measured a total of 150 mL. On drainage of the bladder, there was a small amount of terminal gross hematuria. On reinspection of the bladder, there were a few glomeruli on the dome of the bladder. No other demonstrable tears. Bladder was drained. The vaginal tissues were examined for what the patient thought were a couple of small ulcerations on the left labial tissue on the inside. I could absolutely find no evidence of any ulcerations on the labia minor or majora. She appeared to have in the extreme ventral area a slight slit in the most ventral tissue just inside the labia. The vaginal speculum was used to examine all the vaginal tissue, and I could not find any evidence of any ulcerations. Patient does appear to have some atrophic vaginitis. Tissues were relatively soft and normal in my opinion. The bladder was drained. Catheter was left indwelling. Hydrocortisone cream was placed per urethra. Patient returned to the recovery room in satisfactory condition. This is a patient with intermittent problem with strong urgency and frequency of urination and tenesmus, bladder pain, lower abdominal pain. Patient self-treats if she has any antibiotics at home that she has not used, and she tried Cipro without relief. She said she had trouble eventually in tolerating the Cipro therapy, contacted me, and was seen in Urgent Care. See their notes for details. I believe she was placed on Keflex therapy. She returns from her trip to [place] still having problems and called this past weekend. I recommended catheterized urine for urinalysis, culture, and sensitivity. The urine was normal. They did not do the culture and sensitivity as requested. Patient is here for followup. She is requesting evaluation and dilation of her bladder, which she has had episodically over the past few years for treatment of her apparent irritable bladder syndrome. PLAN h Have ordered fungal serology and intermediate TBC skin test to rule out those etiologies. Patient will be ready for discharge home when alert and functional. To force fluids, 2 L per day. Activities as tolerated. She is to continue her usual medications. Copy of instructions was given to the patient. Plan followup in the office this coming Tuesday. Also plan to have the patient see the scrap carrier and follow up for her vaginal issue. RASHEEDA
== END 2019-02-01 15:55 | disposition home or self-care (01) ==
LOC: OR 00:58
DX: R39.15 Urgency of urination (principal); R35.0 Frequency of micturition; R19.8 Other specified symptoms and signs involving the digestive system and abdomen; R39.89 Other symptoms and signs involving the genitourinary system
CPT/HCPCS: 36415; 52000; 81001; 87088; 87103; A9270; J0696; J1100; J1580; J1885; J2001; J2405; J2704; J3010; J7050; 86580